=== PATIENT | male | born 1990 ===

== ENCOUNTER 2017-10-18 11:37 | Emergency (ER) | payer OTHER ==
[2017-10-18 11:37] VITALS: BMI 30.3
[2017-10-18 11:42] VITALS: BP 127/72; PULSE 74; RESP 18; TEMP 97.3; O2SAT 97
--- NOTE | 2017-10-18 13:19 | C.PDOC ---
History Of Present Illness 26 yr old male presents to the ER with 4 day history of subjective fevers, cough , runny nose, sore throat and body aches. Patient denies chest pain, SOB, nausea , vomiting or headache. Time Seen by Provider: 10/18/17 12:03 Chief Complaint (Nursing): Flu-like Symptoms History Per: Patient History/Exam Limitations: no limitations Onset/Duration Of Symptoms: Days (4) Past Medical History Reviewed: Historical Data, Nursing Documentation, Vital Signs Vital Signs: Last Vital Signs Temp 97.3 F L 10/18/17 11:40 Pulse 74 10/18/17 11:40 Resp 18 10/18/17 11:40 BP 127/72 10/18/17 11:40 Pulse Ox 97 10/18/17 17:05 - Medical History PMH: Seizures Family History: States: No Known Family Hx - Social History Hx Alcohol Use: No Hx Substance Use: No Review Of Systems Except As Marked, All Systems Reviewed And Found Negative. Constitutional: Positive for: Fever (Subjective), Other ((+) Body aches) ENT: Positive for: Nose Discharge (Runny nose), Throat Pain (Sore throat) Cardiovascular: Negative for: Chest Pain Respiratory: Positive for: Cough. Negative for: Shortness of Breath Gastrointestinal: Negative for: Nausea, Vomiting Neurological: Negative for: Headache Physical Exam - Physical Exam Appears: Non-toxic, No Acute Distress Skin: Warm, Dry, No Rash Head: Atraumatic, Normacephalic Eye(s): bilateral: Normal Inspection, PERRL, EOMI Ear(s): Bilateral: Normal Oral Mucosa: Moist Throat: Normal, No Erythema, No Exudate, No Drooling Neck: Normal, Normal ROM, Supple Cardiovascular: Rhythm Regular, No Murmur Respiratory: Normal Breath Sounds, No Rales, No Rhonchi, No Stridor, No Wheezing Gastrointestinal/Abdominal: Bowel Sounds (active), Soft, No Tenderness Extremity: Normal ROM, No Swelling Neurological/Psych: Oriented x3, Normal Speech, Normal Motor Gait: Steady ED Course And Treatment O2 Sat by Pulse Oximetry: 97 (RA) Pulse Ox Interpretation: Normal Medical Decision Making Medical Decision Making: PLAN: * Claritin PO * Motrin PO Disposition - Disposition Referrals: [facility] [Outside] Disposition: HOME/ ROUTINE Disposition Time: 13:17 Condition: GOOD Additional Instructions: Follow up with the medical doctor within 1-2 days. 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 - Scribe Statement The provider has reviewed the documentation as recorded by the Scribe Aubree Edmond All medical record entries made by the Alexibalexa were at my direction and personally dictated by me. I have reviewed the chart and agree that the record accurately reflects my personal performance of the history, physical exam, medical decision making, and the department course for this patient. I have also personally directed, reviewed, and agree with the discharge instructions and disposition.
== END 2017-10-18 13:50 | disposition home or self-care (01) ==
LOC: C.ER 11:37
DX: J06.9 Acute upper respiratory infection, unspecified (principal)

== ENCOUNTER 2019-03-14 23:21 | Emergency (ER) | payer SELFPAY ==
[2019-03-14 23:21] VITALS: BMI 30.9
[2019-03-14 23:32] VITALS: TEMP 98.3
[2019-03-14 23:34] VITALS: PULSE 84
[2019-03-14] MEDS ORDERED: Aluminum Hydroxide/Magnesium Hydroxide Susp (30 mL) PO STA (23:47)
[2019-03-14] MEDS ORDERED: Aluminum Hydroxide/Magnesium Hydroxide Susp (30 mL) ONE (23:56)
[2019-03-15 00:28] LABS: BASO # 0.1 K/uL (0.0-0.2); BASO % 0.6 % (0.0-2.0); EOS # 0.3 K/uL (0.0-0.7); EOS % 3.1 % (0.0-4.0); HEMOGLOBIN 14.9 g/dL (12.0-18.0); LYMPH # 2.9 K/uL (1.0-4.3); LYMPH % 27.6 % (20.0-40.0); MEAN CELL VOLUME 85.8 fL (80.0-94.0); MEAN CORPUSCULAR HEMOGLOBIN 28.8 pg (27.0-31.0); MEAN CORPUSCULAR HGB CONC 33.6 g/dL (33.0-37.0); MEAN PLATELET VOLUME 9.6 fL (7.2-11.7); MONO # 1.1 K/uL (0.0-0.8); NEUT # 6.2 K/uL (1.8-7.0); NEUT % 58.7 % (50.0-75.0); RBC 5.16 Mil/uL (4.40-5.90); RED CELL DISTRIBUTION WIDTH 13.8 % (11.5-14.5); WHITE BLOOD COUNT 10.6 K/uL (4.8-10.8)
[2019-03-15 00:29] LABS: ALB/GLOB RATIO 1.6 (1.0-2.1); ALBUMIN 4.5 g/dL (3.5-5.0); ALT/SGPT 27 U/L (21-72); AST/SGOT 31 U/L (17-59); BLOOD UREA NITROGEN 13 mg/dL (9-20); CALCIUM 9.2 mg/dl (8.6-10.4); GFR NON-AFRICAN AMERICAN > 60; LIPASE 78 U/L (23-300)
--- NOTE | 2019-03-15 01:22 | C.PDOC ---
History Of Present Illness 28-year-old male presents to the ED for evaluation of mid-sternal chest pain which began after he ate barbeque tonight. Patient describes his pain as a stabbing sensation, and is also complaining of right-sided rib pain. Patient denies fever, chills, cough, shortness of breath, or exertional pain. Time Seen by Provider: 03/14/19 23:33 Chief Complaint (Nursing): Chest Pain History Per: Patient History/Exam Limitations: no limitations Onset/Duration Of Symptoms: Hrs Current Symptoms Are (Timing): Still Present Quality: Sharp, "Pain" Additional History Per: Patient Past Medical History Reviewed: Historical Data, Nursing Documentation, Vital Signs Vital Signs: Last Vital Signs Temp 98.3 F 03/14/19 23:29 Pulse 94 H 03/14/19 23:29 Resp 18 03/14/19 23:29 BP 138/73 03/14/19 23:29 Pulse Ox 97 03/14/19 23:29 Primary Care Provider: Dolores Diaz R - Medical History PMH: Seizures Surgical History: No Surg Hx Family History: States: Unknown Family Hx - Social History Hx Alcohol Use: No Hx Substance Use: No Review Of Systems Constitutional: Negative for: Fever, Chills, Weakness Cardiovascular: Positive for: Chest Pain Respiratory: Negative for: Cough, Shortness of Breath, SOB with Excertion Gastrointestinal: Negative for: Nausea, Vomiting Musculoskeletal: Positive for: Other (right-sided rib pain ). Negative for: Back Pain Skin: Negative for: Rash Neurological: Negative for: Weakness, Numbness, Dizziness Physical Exam - Physical Exam Appears: Non-toxic, No Acute Distress Skin: Normal Color, Warm, No Rash Head: Atraumatic, Normacephalic Oral Mucosa: Moist Neck: Normal ROM, Supple Chest: Symmetrical, No Deformity, Tenderness (to distal sternum and right ribs ) Cardiovascular: Rhythm Regular, No Murmur Respiratory: No Accessory Muscle Use, Other (normal inspiratory effort ) Gastrointestinal/Abdominal: Soft, No Tenderness, No Distention, No Guarding, No Rebound Extremity: Normal ROM Extremity: Bilateral: Atraumatic Neurological/Psych: Oriented x3, Normal Cranial Nerves (grossly intact ) ED Course And Treatment - Laboratory Results Result Diagrams: 03/15/19 00:10 03/15/19 00:10 Lab Results: Troponin I < 0.0120 ng/mL (0.00-0.120) 03/15/19 00:10 Total Bilirubin 0.6 mg/dL (0.2-1.3) 03/15/19 00:10 AST 31 U/L (17-59) 03/15/19 00:10 ALT 27 U/L (21-72) 03/15/19 00:10 Alkaline Phosphatase 90 U/L (38-126) 03/15/19 00:10 Total Protein 7.3 g/dL (6.3-8.3) 03/15/19 00:10 Albumin 4.5 g/dL (3.5-5.0) 03/15/19 00:10 Globulin 2.8 gm/dL (2.2-3.9) 03/15/19 00:10 Albumin/Globulin Ratio 1.6 (1.0-2.1) 03/15/19 00:10 Lipase 78 U/L (23-300) 03/15/19 00:10 O2 Sat by Pulse Oximetry: 97 (on RA ) Pulse Ox Interpretation: Normal Medical Decision Making Medical Decision Making: Progress: Bloodwork ordered to check for pancreatitis. CXR ordered and reviewed, results are unremarkable. Pepcid IVP and Maalox IVP given. In reassessment, patient is resting comfortably, showing no signs of distress, and reports an improvement in his symptoms. Patient is advised to f/u with his PMD within 1-2 days for further evaluation. 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 - Scribe Statement The provider has reviewed the documentation as recorded by the Scribe (Jaymie Chand) All medical record entries made by the Scribe were at my direction and personally dictated by me. I have reviewed the chart and agree that the record accurately reflects my personal performance of the history, physical exam, medical decision making, and the department course for this patient. I have also personally directed, reviewed, and agree with the discharge instructions and disposition.
[2019-03-15 01:40] VITALS: BP 136/81; RESP 20
[2019-03-15 02:54] VITALS: O2SAT 97
--- NOTE | 2019-03-15 10:49 | RAD ---
Date of service: 03/14/2019 HISTORY: chest pain COMPARISON: No prior. TECHNIQUE: Chest PA and lateral views FINDINGS: LUNGS: No active pulmonary disease. PLEURA: No significant pleural effusion identified. No pneumothorax apparent. CARDIOVASCULAR: No aortic atherosclerotic calcification present. Normal cardiac size. No pulmonary vascular congestion. OSSEOUS STRUCTURES: No significant abnormalities. VISUALIZED UPPER ABDOMEN: Normal. OTHER FINDINGS: None. IMPRESSION: No active disease.
--- NOTE | 2019-03-16 19:46 | CARD ---
APPROVED REPORT Date of service: 03/14/2019 EKG Measurement Heart [id number] <Conclusion> Normal sinus rhythm Possible Left atrial enlargement Borderline ECG
== END 2019-03-15 01:40 | disposition home or self-care (01) ==
LOC: C.ER 23:21 → SUPCPDRO 23:21 → C.ER 03-15 01:40
DX: K30 Functional dyspepsia (principal)